=== PATIENT | male | born 1970 | race African-American/Black ===

== ENCOUNTER 2017-09-01 13:56 | Inpatient (IN) | payer BC ==
[~2017-09-01] VITALS: Ht 165.1 cm; Wt 111.9 kg
[2017-09-01 14:55] LABS: HEMATOCRIT 42.7 % (38.0-50.0); HEMOGLOBIN 14.4 G/DL (12.5-16.6); MCHC 33.7 G/DL (30.0-36.0); MCV 83.1 FL (86-99); PLATELET COUNT 157 K/uL (156-360); RBC DIS.WIDTH-CV 13.2 % (11.8-14.6); RBC DIS.WIDTH-SD 39.6 % (39-53); RED BLOOD COUNT 5.14 M/uL (4.00-5.50); WHITE BLOOD COUNT 8.1 K/uL (4.1-10.2)
[2017-09-01 15:05] LABS: ALBUMIN 4.3 g/dL (3.2-4.8); CHLORIDE 105 mEq/L (99-109); POTASSIUM 3.5 mEq/L (3.7-5.4); SODIUM 143 mEq/L (136-147)
[2017-09-01 15:07] LABS: GLUCOSE 141 mg/dL (70-99); TOTAL PROTEIN 6.7 g/dL (6.4-8.3)
[2017-09-01 15:09] LABS: TOTAL BILIRUBIN 0.7 mg/dL (0.0-1.0)
[2017-09-01 15:11] LABS: ALKALINE PHOSPHATASE 62 IU/L (3-129); CREATININE 1.7 mg/dL (0.6-1.3); GFR ESTIMATE (CALCULATED) 56 mL/min/ (58.99-99999)
[2017-09-01 15:12] LABS: AST (GOT) 23 IU/L (2-34); DIRECT BILIRUBIN 0.3 mg/dL (0.0-0.3); UREA NITROGEN (BUN) 15 mg/dL (9-23)
[2017-09-01 15:14] LABS: ALT (GPT) 34 IU/L (3-49)
[2017-09-01 15:15] LABS: TROP-I INTERPRETATION NEGATIVE; TROPONIN-I < 0.01 ng/mL (0.0-0.30)
[2017-09-01 16:13] LABS: APPEARANCE SL.HAZY ((CLEAR)); BILIRUBIN NEGATIVE; BLOOD NEGATIVE; COLOR YELLOW ((YELLOW)); GLUCOSE (STRIP) NEGATIVE; KETONES NEGATIVE; LEUKOCYTES NEGATIVE; NITRITE NEGATIVE; PROTEIN (STRIP) 30; SPECIFIC GRAVITY 1.018 (1.000-1.030)
[2017-09-01 16:24] LABS: BACTERIA NONE SEEN /HPF; EPITHELIAL CELLS NONE SEEN /HPF; MUCUS TRACE /LPF; RED BLOOD CELLS 0-5 /HPF (0-5); UCUL ADDED? NO; WHITE BLOOD CELLS 0-5 /HPF (0-5)
[2017-09-01] MEDS ORDERED: ALEVE220 MG PO (16:56)
[2017-09-01 18:42] LABS: D-DIMER ELISA < 150.00 ng/mLDDU (<230)
[2017-09-01 21:33] VITALS: BP 132/76
[2017-09-02] VITALS (9 sets, daily range): BP systolic 121–163; BP diastolic 66–94
[2017-09-02 00:56] LABS: TROP-I INTERPRETATION NEGATIVE; TROPONIN-I < 0.01 ng/mL (0.0-0.30)
[2017-09-02 06:13] LABS: HEMOGLOBIN 12.6 G/DL (12.5-16.6); MCH 27.6 PG (29.0-34.0); MCHC 33.2 G/DL (30.0-36.0); MCV 83.2 FL (86-99); PLATELET COUNT 165 K/uL (156-360); RBC DIS.WIDTH-CV 13.7 % (11.8-14.6); RBC DIS.WIDTH-SD 41.1 % (39-53); RED BLOOD COUNT 4.57 M/uL (4.00-5.50)
[2017-09-02 06:31] LABS: TROP-I INTERPRETATION NEGATIVE; TROPONIN-I < 0.01 ng/mL (0.0-0.30)
[2017-09-02 06:35] LABS: CHLORIDE 110 MEQ/L (99-109); CREATININE 1.3 MG/DL (0.6-1.3); GFR ESTIMATE (CALCULATED) > 59 mL/min/ (58.99-99999); POTASSIUM 3.8 MEQ/L (3.7-5.4); SODIUM 144 MEQ/L (136-147); UREA NITROGEN (BUN) 13 mg/dL (9-23)
[2017-09-02 06:37] LABS: GLUCOSE 102 mg/dL (70-99)
[2017-09-03 00:09] VITALS: BP 129/79
[2017-09-03 04:46] VITALS: BP 133/79
[2017-09-03 09:44] VITALS: BP 141/87
[2017-09-03 12:47] VITALS: BP 131/87
== END 2017-09-03 17:24 | disposition home or self-care (01) | DRG 683 ==
LOC: EME 13:56 → EDOF 17:17 → 5EAST 17:17 → ENRESERV 17:18 → 5EAST 21:28
PROVIDERS: Emergency Medicine; Internal Medicine
DX: N17.9 Acute kidney failure, unspecified (principal); E86.0 Dehydration; R55 Syncope and collapse; E87.2 Acidosis; E87.6 Hypokalemia; R94.31 Abnormal electrocardiogram [ECG] [EKG]; I95.9 Hypotension, unspecified; I44.1 Atrioventricular block, second degree; R00.1 Bradycardia, unspecified; R11.2 Nausea with vomiting, unspecified; T62.91XA Toxic effect of unspecified noxious substance eaten as food, accidental (unintentional), initial encounter; F40.240 Claustrophobia; R32 Unspecified urinary incontinence; E66.9 Obesity, unspecified; Z68.35 Body mass index [BMI] 35.0-35.9, adult
CPT/HCPCS: 70450; 71045; 74176; 80048; 80076; 81003; 83605; 84484; 85027; 85379; 87040; 93005; 95819; 99281; 99285; J1650; J2765; J7030

== ENCOUNTER 2017-12-18 07:28 | Day surgery (SDC) | payer OTHER, BC ==
[~2017-12-18] VITALS: Ht 177.8 cm; Wt 112.0 kg
[~2017-12-18 07:28] MED LIST: ALEVE220 MG PO; ZOLOFT25 MG PO; [UNRECOGNIZED DRUG - OTHER] PO
[2017-12-18 08:10] VITALS: BP 120/70
[2017-12-18 14:32] VITALS: BP 147/91
[2017-12-18 15:25] VITALS: BP 124/74
[2017-12-18 16:50] VITALS: BP 148/67
== END 2017-12-18 17:10 | disposition home or self-care (01) ==
LOC: SDC 07:28
PROC: 0LQ30ZZ Repair Right Upper Arm Tendon, Open Approach (ICD-10-PCS; principal; 2017-12-18)
DX: S46.211A Strain of muscle, fascia and tendon of other parts of biceps, right arm, initial encounter (principal); X50.0XXA Overexertion from strenuous movement or load, initial encounter; Y93.89 Activity, other specified; Y92.69 Other specified industrial and construction area as the place of occurrence of the external cause; Y99.0 Civilian activity done for income or pay; F41.9 Anxiety disorder, unspecified; Z82.49 Family history of ischemic heart disease and other diseases of the circulatory system
CPT/HCPCS: C1762; J0131; J0690; J1170; J2250; J2405; J3010; S0020